=== PATIENT | female | born 1985 | race Caucasian/White ===

== ENCOUNTER → 2016-09-02 | Outpatient (CLI) | payer BC, OTHER ==
[2015-05-27 23:05] VITALS: BP 123/70
[~2016-09-02] MED LIST: HYDR-971 PO
--- NOTE | 2016-09-02 09:20 | RAD ---
Exam: PA chest and bilateral rib radiographs, 5 total images History: Bilateral rib pain from coughing for 2 weeks. Comparison: None. Findings: Cardiomediastinal silhouette is within normal limits for size. Bilateral lung lira are free of focal infiltrate. No pleural effusion is seen. No displaced rib fractures are identified. Impression: No acute abnormality identified in the chest.
== END | disposition home or self-care (01) ==
LOC: DXRADRC 08:53
PROVIDERS: ATTEND Physician Assistant Medical
DX: R07.81 Pleurodynia (principal); R05 Cough
CPT/HCPCS: 71111